=== PATIENT | male | born 1990 | race Caucasian/White ===

== ENCOUNTER 2022-05-12 10:51 | Day surgery (SDC) | payer BC ==
[~2022-05-12] VITALS: Ht 182.9 cm; Wt 93.1 kg
[~2022-05-12 10:51] MED LIST: FAMO20 PO; HYDACE5 PO; METO100ER PO; TOPIRAMATE ER50 MG PO
== END 2022-05-12 12:08 | disposition home or self-care (01) ==
LOC: ORSCSDS 10:51
PROVIDERS: Student in an Organized Health Care Education/Training Program
PROC: 0DB68ZX Excision of Stomach, Via Natural or Artificial Opening Endoscopic, Diagnostic (ICD-10-PCS; principal; 2022-05-12 13:00)
PROC: 0DB98ZX Excision of Duodenum, Via Natural or Artificial Opening Endoscopic, Diagnostic (ICD-10-PCS; principal; 2022-05-12 13:00)
PROC: 0DB58ZX Excision of Esophagus, Via Natural or Artificial Opening Endoscopic, Diagnostic (ICD-10-PCS; principal; 2022-05-12 13:00)
DX: K21.9 Gastro-esophageal reflux disease without esophagitis (principal); R12 Heartburn; I10 Essential (primary) hypertension; K29.70 Gastritis, unspecified, without bleeding; Q23.1 Congenital insufficiency of aortic valve; R10.11 Right upper quadrant pain; Z79.899 Other long term (current) drug therapy
CPT/HCPCS: 88305; 88342; J2250; J2704; J7120